=== PATIENT | male | born 1990 | race Caucasian/White ===

== ENCOUNTER 2019-06-29 09:38 | Emergency (ER) | payer OTHER, SELFPAY ==
[2019-06-29 09:55] VITALS: BP 142/79; PULSE 77; RESP 16; TEMP 36.8; O2SAT 98
--- NOTE | 2019-06-29 10:11 | ED.GENADULT ---
HPI - General Adult General Chief complaint: GI Bleed Stated complaint: Blood in stool Time Seen by Provider: 06/29/19 10:12 Source: patient and RN notes reviewed Mode of arrival: ambulatory Limitations: no limitations History of Present Illness HPI narrative: 29-year-old male presents with complaints of perianal pain, bleeding, and swelling for the past 8 days. Preparation H cool soothing cream with no relief. Glenn says prior to having bright blood he had a large stool in which he had to do a lot of pushing and sitting prior to getting it out. Had bright red blood on pants last night at work and had to leave. History of Hemorrhoids (last 10 years ago) and Constipation. LBM 2-3 days ago. Denies inflammatory bowel disease or rectal polyps. Family history of rectal bleeding. Denies rectal trauma. Denies night sweats, fever, weight, abdominal pain, tenesmus, and chronic diarrhea. Denies dysuria or hematuria. No fever or chills. No abdominal cramping, nausea, and vomiting. Tolerating po intake. Denies dizziness, syncopal, seizure activities. Remains active. Some parts of this dictation were generated by voice recognition software and may contain typographical and/or grammatical inaccuracies. Related Data Home Medications Medication Instructions Recorded Confirmed No Home Medications 06/29/19 06/29/19 Allergies Allergy/AdvReac Type Severity Reaction Status Date / Time morphine Allergy Seizure Verified 06/29/19 10:17 Review of Systems Review of Systems: Narrative: CONSTITUTIONAL: Denies fever, chills, sweats. EYES: Denies visual changes, redness, discharge. ENT: Denies rhinorrhea, congestion, sore throat, otalgia. CARDIOVASCULAR: Denies chest pain, palpitations, edema. RESPIRATORY: Denies dyspnea, wheezing, cough. GASTROINTESTINAL: Denies abdominal pain, nausea, vomiting, diarrhea. GENITOURINARY: Denies dysuria, hematuria, abnormal discharge. SKIN: Denies rash or itching. Complaints of perianal pain, bleeding, and swelling. MUSCULOSKELETAL: Denies acute back pain, joint pain, or myalgia. NEUROLOGIC: Denies numbness or focal weakness. PSYCHIATRIC: Denies anxiety or depression. All systems reviewed & are unremarkable except as noted in HPI and below. [facility] Past Medical History Medical History (Updated 06/30/19 @ 00:00 by Background Daemon) Hemorrhoids Surgical History Surgical History (Updated 06/29/19 @ 10:28 by ZANE Zafar) History of knee surgery Right ACL reconstruction Family History Family History (Updated 06/29/19 @ 10:28 by ZANE Zafar) Father Hypertension Grandparent Hypertension Social History Social History (Updated 06/29/19 @ 10:29 by ZANE Zafar) Smoking status: Former smoker Second hand tobacco smoke exposure: No Alcohol intake: current Alcohol use details: Occasional Substance use: never Living arrangements: with family Occupation/Education: occupation Gender identity (if verbalized by the patient): Male Comments At time of signature, I have reviewed and agree with nursing past medical, surgical, social, and family history. Please see nursing chart for further information. There is no relevant family history pertinent to the presenting complaint. Exam Narrative: Exam Narrative: GENERAL: This is a well-nourished, well-developed patient, in no apparent distress. Talking in full sentences without deficit and ambulate with steady gait without dyspnea. HEAD: normocephalic, atraumatic. EYES: PERRL. Sclera clear/white. Vision is grossly intact. NECK: Neck supple, non-tender without lymphadenopathy, masses or thyromegaly. CARDIOVASCULAR: Regular rate and rhythm without murmurs, gallops, or rubs. RESPIRATORY: Clear to auscultation. Breath sounds equal bilaterally. No wheezes, rales, or rhonchi. GASTROINTESTINAL: Abdomen soft, non-tender, nondistended. Bowel sounds are active. No hepato-splenomegaly, or palpable kulwinder
== END 2019-06-29 10:47 | disposition home or self-care (01) ==
PROVIDERS: Emergency Provider Nurse Practitioner Family
DX: K64.4 Residual hemorrhoidal skin tags (principal); Z87.891 Personal history of nicotine dependence
CPT/HCPCS: 99211; G0463

== ENCOUNTER 2021-11-24 19:00 | Emergency (ER) | payer OTHER, SELFPAY ==
[2021-11-24] VITALS (8 sets, daily range): BP systolic 108–142; BP diastolic 65–97; PULSE 55–76; RESP 12–18; TEMP 36.3; O2SAT 97–99
--- NOTE | 2021-11-24 19:09 | ED.GENADULT ---
HPI - General Adult General Chief complaint: Syncope Stated complaint: Unspecified Time Seen by Provider: 11/24/21 19:07 History of Present Illness HPI narrative: 31-year-old male presented to the emergency department for evaluation after having a syncopal episode in the emergency department. Patient was standing by the bedside for his daughter who had a dislocated elbow. Patient became diaphoretic and had a near syncopal episode. Patient never fully lost consciousness. Patient was placed in a supine position and had improvement. Patient states that he does work nights and was not able to sleep due to coming to the emergency department for his daughter. Patient denies any prior cardiac history. Patient denies any history of sudden cardiac . Patient denies any other significant underlying past medical history. Related Data Home Medications Medication Instructions Recorded Confirmed melatonin 5 mg chewable tablet 10 mg PO HS PRN Sleep 11/24/21 11/24/21 Allergies Allergy/AdvReac Type Severity Reaction Status Date / Time morphine Allergy Seizure Verified 11/24/21 19:11 Review of Systems Review of Systems: CONSTITUTIONAL: Near syncope EYES: Denies visual changes, redness, or discharge. ENT: Denies rhinorrhea, congestion, sore throat, or otalgia. CARDIOVASCULAR: Denies chest pain, palpitations, or edema. RESPIRATORY: Denies cough or dyspnea. GASTROINTESTINAL: Denies abdominal pain, nausea, vomiting, or diarrhea. GENITOURINARY: Denies dysuria or hematuria. SKIN: Denies rash or itching. MUSCULOSKELETAL: Denies back pain, joint pain, or myalgia. NEUROLOGIC: Denies headache, numbness, or weakness. PSYCHIATRIC: Denies anxiety or depression. [facility] Past Medical History Medical History (Updated 11/25/21 @ 00:00 by [facility] Dajemal) Hemorrhoids Surgical History Surgical History (Updated 06/29/19 @ 10:28 by ZANE Zafar) History of knee surgery Right ACL reconstruction Family History Family History (Updated 06/29/19 @ 10:28 by ZANE Zafar) Father Hypertension Grandparent Hypertension Social History Social History (Updated 06/29/19 @ 10:29 by ZANE Zafar) Smoking status: Former smoker Second hand tobacco smoke exposure: No Alcohol intake: current Alcohol use details: Occasional Substance use: never Gender identity (if verbalized by the patient): Male Exam Narrative: APPEARANCE: Well appearing, no pain, no distress, well-nourished. HEAD: normocephalic, atraumatic. EYES: PERRLA/EOMI, conjunctivae clear. NOSE: Normal no drainage NECK: Supple. No adenopathy, no masses. RESPIRATORY: Airway patent, respirations nonlabored. Clear to auscultation bilaterally, no rales, rhonchi, wheezing. CARDIOVASCULAR: Regular rate and rhythm without murmurs rubs or gallops. ABDOMINAL: Soft, nontender, nondistended, normal bowel sounds MUSCULOSKELETAL: Moves all extremities. Strength/ROM intact, No edema, No calf tenderness. NEURO: Alert. Cranial nerves II through XII intact. Good gait. Good coordination SKIN: Warm, dry. Normal Color Course Course Emergency Course: On reexamination patient does feel improved. Patient is not orthostatic and is otherwise asymptomatic. Patient is requesting discharge to home. Vital Signs Vital signs: Vital Signs Temperature 97.4 F L 11/24/21 19:03 Pulse Rate 70 11/24/21 19:03 Respiratory Rate 18 11/24/21 19:03 Blood Pressure 142/89 H 11/24/21 19:03 Pulse Oximetry 97 11/24/21 19:03 Oxygen Delivery Room Air 11/24/21 19:03 Temperature 97.4 F L 11/24/21 19:03 Pulse Rate 66 11/24/21 23:28 Respiratory Rate 18 11/24/21 23:28 Blood Pressure 127/78 11/24/21 23:28 Pulse Oximetry 98 11/24/21 23:28 Oxygen Delivery Room Air 11/24/21 19:03 Medical Decision Making Vital Signs Vital Signs: Vital Signs Temperature 97.4 F L 11/24/21 19:03 Pulse Rate 70 11/24/21 19:03 Respiratory Rate 18
[2021-11-24] MEDS: SODIUM CHLORIDE 0.9% IV 1,000 ML 999 ML IV CONT (19:26)
[2021-11-24 19:55] LABS: Basophils Absolute Auto 0.1 K/mm3 (0.0-0.1); Basophils Percent Auto 0.7 % (0.2-1.2); Eosinophils Absolute Auto 0.3 K/mm3 (0-0.3); Eosinophils Percent Auto 1.7 % (0-4.4); Hematocrit 39.5 % (42.0-52.0); Hemoglobin 13.8 g/dL (14.0-18.0); Immature Granulocyte Absolute 0.13 K/mm3 (0.00-0.031); Immature Granulocyte Percent A 0.9 % (0-0.5); Lymphocytes Absolute Auto 5.93 K/mm3 (0.9-3.2); Lymphocytes Percent Auto 39.2 % (18.3-44.2); Mean Corpuscular HGB Conc 34.9 g/dl (32-36); Mean Corpuscular Hemoglobin 30.2 pg (26-34); Mean Corpuscular Volume 86.4 fl (80-100); Mean Platelet Volume 10.8 fl (7.4-10.4); Monocytes Absolute Auto 1.1 K/mm3 (0.1-0.6); Monocytes Percent Auto 7.4 % (2.6-8.5); Neutrophils Absolute Auto 7.6 K/mm3 (1.3-6.7); Neutrophils Percent Auto 50.1 % (45.5-73.1); Platelet Count Result 339 k/mm3 (150-375); Red Blood Count 4.57 M/mm3 (4.6-6.20); Red Cell Distribution Width 12.6 % (11.5-14.5); White Blood Count 15.1 K/mm3 (4.5-10.0)
[2021-11-24 21:43] LABS: Alanine Aminotransferase 29 U/L (6-50); Albumin Level 4.5 g/dL (3.5-5.1); Alkaline Phosphatase 84 U/L (38-126); Anion Gap 9 mmol/L (8-16); Aspartate Amino Transferase 29 U/L (17-59); Bilirubin,Total 0.4 mg/dL (0.2-1.3); Blood Urea Nitrogen 12 mg/dL (9-20); Calcium 9.5 mg/dL (8.4-10.2); Carbon Dioxide 26 mmol/L (22-30); Chloride 101 mmol/L (98-107); Estimated CRCL calculation 121 ml/min; Estimated Glomerular Filt Rate > 60; Glucose 110 mg/dL (65-110); Potassium 4.1 mmol/L (3.4-5.0); Sodium 136 mmol/L (137-145)
[2021-12-13 15:04] LABS: Glucose Point of Care 119 mg/dl (65-105)
== END 2021-11-24 23:15 | disposition home or self-care (01) ==
PROVIDERS: Emergency Provider Emergency Medicine; PCP Family Medicine Sports Medicine
DX: R55 Syncope and collapse (principal)
CPT/HCPCS: 36415; 80053; 82948; 85025; 96360; 99283; J7030